=== PATIENT | male | born 1985 | race African-American/Black ===

== ENCOUNTER 2017-01-22 07:18 | Emergency (ER) | payer BC ==
[2017-01-22 09:26] LABS: BASOPHIL% 1.1 % (0-2.5); EOSINOPHIL% 0.8 % (0.0-7.0); HEMATOCRIT 37.3 % (38.0-50.0); HEMOGLOBIN 12.5 gm/dL (13.0-16.0); LYMPHOCYTE# 1.5 X10e3 (1.0-3.5); MEAN CELL VOLUME 95.5 FL (83-96); MEAN CORPUSCULAR HEMOGLOBIN 32.1 PG (28-34); MEAN CORPUSCULAR HGB CONC 33.6 g/dL (30-36); MEAN PLATELET VOLUME 9.2 FL (6.5-11.5); MONOCYTE# 0.3 X10e3 (0-1.0); MONOCYTE% 13.1 % (3.0-12.0); NEUTROPHIL# 0.7 X10e3 (1.5-7.1); PLATELET COUNT 111 X10e3 (140-420); RED CELL DISTRIBUTION WIDTH 14.4 % (11.0-15.5); WHITE BLOOD COUNT 2.7 X10e3 (4.0-10.5)
[2017-01-22 09:27] LABS: DIFF IND YES
[2017-01-22 09:44] LABS: ALBUMIN SERUM 4.1 g/dL (3.5-5.0); ALKALINE PHOSPHATASE 96 U/L (32-92); ALT (SGPT) 40 U/L (10-40); AMYLASE 18 U/L (0-46); AST (SGOT) 109 U/L (10-42); BILIRUBIN,TOTAL 0.9 mg/dL (0.2-2.0); BLOOD UREA NITROGEN <5 mg/dL (9-23); CALCIUM SERUM 8.3 mg/dL (8.4-10.2); CARBON DIOXIDE 28 mmol/L (22-31); CHLORIDE 103 mmol/L (100-111); CREATININE SERUM 0.5 mg/dL (0.6-1.4); GLOM FILT RATE Estimated 165.1 mL/min (>60); GLUCOSE FASTING 112 mg/dL (70-110); LIPASE 39 U/L (22-51); POTASSIUM 3.7 mmol/L (3.5-5.1); PROTEIN TOTAL SERUM 8.1 g/dL (6.0-8.3); SODIUM 139 mmol/L (135-145)
[2017-01-22 09:45] LABS: ALCOHOL BLOOD 372 mg/dL (0)
[2017-01-22 10:06] LABS: PLATELET ESTIMATE DECREASED (NORMAL); RBC NORMAL YES; REACTIVE LYMPHS PRESENT
== END 2017-01-22 11:50 | disposition home or self-care (01) ==
LOC: CED 07:18
PROVIDERS: Nurse Practitioner
DX: H66.91 Otitis media, unspecified, right ear (principal); F10.10 Alcohol abuse, uncomplicated; R03.0 Elevated blood-pressure reading, without diagnosis of hypertension
CPT/HCPCS: 36415; 80053; 82150; 83690; 85025; 96360; 96365; 99284; G0480; J3411; J3475